=== PATIENT | female | born 1995 | race Caucasian/White ===

== ENCOUNTER → 2020-09-12 10:06 | Outpatient (CLI) | payer OTHER, MEDICAID, SELFPAY ==
--- NOTE | 2020-09-12 | DI.US.S_ITS ---
PROCEDURE: US OB >= 14 WEEKS FETUS INDICATIONS: ANATOMY OUTSIDE/PRIOR DATING DATA: Last menstrual period (LMP): 04/13/2020. LMP-based estimated date of delivery (IVA): 01/18/2021 . First dating scan (date and location): 09/12/2020 . Estimated date of delivery (IVA) from first dating scan: 01/12/2021 . TECHNIQUE: Real-time scanning was performed of the fetus, with image documentation and biometric measurements. Endovaginal scanning: No COMPARISON: None. FINDINGS: General: A single living intrauterine gestation is present. Presentation: Variable. Placenta: Placental position is anterior , with lower uterine contraction and the inferior aspect of the placenta may be low lying. Amniotic fluid index: 19.1 cm, normal range is 5-24 cm. heart rate: 153 beats per minute. Maternal cervical canal: 7.3 cm long. Normal lower limit is 2.5 cm. biometrics: Biparietal diameter: 22 weeks 5 days Head circumference: 22 weeks 6 days Abdominal circumference: 22 weeks 4 days Femur length: 22 weeks 0 days Estimated gestational age from initial scan: not applicable. Composite gestational age from present scan: 22 weeks 4 days Estimated weight and percentile: 502 g Measurement variability for biometric dating: +/- 7 days from 14 weeks to 15 weeks 6 days gestation, +/- 10 days from 16 weeks to 21 weeks 6 days gestation, +/- 2 weeks from 22 weeks to 27 weeks 6 days gestation, +/- 3 weeks for 28 weeks gestation or later. weight reference: 4500 g or EFW >90/95% is considered macrosomia or large for gestational age. EFW <10% is small for gestational age. EFW 5% or less is considered intra-uterine growth restriction. Anatomic survey: Neuro: Ventricles are non-dilated at less than 10 mm. Cisterna magna is normal at 3-11 mm. Cerebellum is normal in size and morphology. Nuchal skin fold: Normal at less than 6 mm between 14-21 weeks gestational age. Face: Suboptimally visualized. Spine: No evidence for spina bifida. Heart: 4-chambered heart is present, with normal ventricular outflow tracts. Diaphragm: Diaphragm is intact. Stomach: Left-sided stomach is present. Kidneys: No hydronephrosis. Normal is less than 5 mm in 2nd trimester, less than 7 mm in 3rd trimester. Cord: 3-vessel cord has orthotopic insertion. Bladder: Normal in size. Extremities: All 4 extremities identified. IMPRESSION: 1. 22 week 4 day single living IUP. 2. face suboptimally visualized; otherwise normal anatomy. 3. Lower uterine segment contraction and a low-lying placenta may be present and therefore a short-term follow-up ultrasound is recommended. Dictated by: Aniket Jackson [facility] Interpreted: Ervin Melgar MD on 09/12/2020 at 16:57 Transcribed by: LAQUITA on 09/12/2020 at 16:59 Approved by: Ervin Melgar M.D. on 09/23/2020 at 13:20
== END ==
PROVIDERS: Referring Provider Nurse Practitioner Obstetrics & Gynecology; Visit Provider Nurse Practitioner Obstetrics & Gynecology
DX: Z36.89 Encounter for other specified antenatal screening (principal); Z3A.22 22 weeks gestation of pregnancy
CPT/HCPCS: 76811

== ENCOUNTER → 2020-11-01 10:58 | Outpatient (CLI) | payer OTHER, MEDICAID, SELFPAY ==
[2020-11-01 12:02] LABS: Hematocrit 31.1 % (36-46); Hemoglobin 10.7 g/dL (12.0-16.0); Mean Corpuscular HGB Conc 34.4 % (30-36); Mean Corpuscular Hemoglobin 29.2 PG (26-34); Platelet Count 183 X10^3/uL (150-400); Red Blood Cell Count 3.66 X10^6/uL (4.0-5.2); Red Cell Distribution Width 13.1 % (11.6-14.8); White Blood Cell Count 8.2 X10^3/uL (4.5-11.0)
[2020-11-01 12:37] LABS: Glucose Fasting 76 mg/dL (70-100)
[2020-11-01 13:27] LABS: Glucose 1 Hour 148 mg/dL (70-170)
[2020-11-01 13:50] LABS: Glucose Tol Interpretation INTERPRETATION
[2020-11-01 14:43] LABS: Glucose 2 Hour 118 mg/dL (70-140)
== END ==
PROVIDERS: Referring Provider Nurse Practitioner Obstetrics & Gynecology; Visit Provider Nurse Practitioner Obstetrics & Gynecology
DX: Z34.90 Encounter for supervision of normal pregnancy, unspecified, unspecified trimester (principal); Z13.1 Encounter for screening for diabetes mellitus; Z67.91 Unspecified blood type, Rh negative; Z3A.27 27 weeks gestation of pregnancy
CPT/HCPCS: 36415; 82951; 82952; 85027

== ENCOUNTER → 2020-11-18 12:39 | Outpatient (CLI) | payer OTHER, MEDICAID, SELFPAY ==
--- NOTE | 2020-11-18 | DI.US.S_ITS ---
PROCEDURE: US OB FOLLOW UP INDICATIONS: FOLLOW UP PLACENTAL LOCATION AND PROFILE OUTSIDE/PRIOR DATING DATA: Last menstrual period (LMP): 04/13/2020. LMP-based estimated date of delivery (IVA): 01/18/2021. First dating scan (date and location): 09/12/2020. Estimated date of delivery (IVA) from first dating scan: 01/12/2021. TECHNIQUE: Real-time scanning was performed of the fetus, with image documentation. Endovaginal scanning: Not performed. COMPARISON: 09/12/2020. FINDINGS: A single living intrauterine gestation is present. Presentation: Vertex/oblique. Placenta: Placental position is anterior, without previa. Amniotic fluid index: 19.4 cm, normal range is 5-24 cm. heart rate: 147 beats per minute. Maternal cervical canal: 5.3 cm long. Normal lower limit is 2.5 cm. No funneling. Estimated gestational age from initial scan: 32 weeks 1 day. Profile is not visualized and appears normal. Debris or concentrated urine in the maternal urinary bladder. IMPRESSION: 1. [place]isner[place] living intrauterine at 32 weeks 1 day based on prior ultrasound. 2. Normal placenta and amniotic fluid. No placental previa. 3. Normal profile. 4. Debris or concentrated urine in the maternal urinary bladder. Dictated by: Sukhi Geronimo M.D. on 11/18/2020 at 13:30 Approved by: Sukhi Geronimo M.D. on 11/18/2020 at 13:32
== END ==
PROVIDERS: Referring Provider Nurse Practitioner Obstetrics & Gynecology; Visit Provider Nurse Practitioner Obstetrics & Gynecology
DX: Z36.2 Encounter for other antenatal screening follow-up (principal); Z3A.32 32 weeks gestation of pregnancy
CPT/HCPCS: 76816

== ENCOUNTER → 2020-12-30 11:49 | Outpatient (ROUT) | payer OTHER, MEDICAID, SELFPAY | PROVIDERS: Visit Provider Nurse Practitioner Obstetrics & Gynecology | DX: Z34.90 Encounter for supervision of normal pregnancy, unspecified, unspecified trimester (principal); Z36.85 Encounter for antenatal screening for Streptococcus B; Z3A.36 36 weeks gestation of pregnancy | CPT/HCPCS: 87081 ==

== ENCOUNTER 2021-01-24 02:35 | Observation (INO) | payer OTHER, MEDICAID, SELFPAY ==
--- NOTE | 2021-01-24 03:08 | PM.OBTRLD ---
Visit Information Visit Information Date of evaluation: 01/24/21 Primary OB Provider: Teresa Grimm On-call OB Provider: Zaina Mace Reason for Evaluation: Yes rule out labor Comments/Additional reasons for admission: 25YO @ [id number] here for evaluation of labor. Contractions have been progressing in frequency and intensity since yesterday. Lots of FM. Noticed mucus plug and small spotting in discharge. No LOF. Uncomplicated PN care w/ CNM. Vital Signs Vital Signs: BP 135/65, HR 94bpm, T 36.0C Temporal PFSH Social History Smoking Status: Never smoker Review of Systems Review of Systems ROS: Yes All systems reviewed with the patient and are negative except as otherwise documented Exam Vital Signs (past 8 hours): see above Evaluation Evaluation Baseline heart rate: 145 Variability: Moderate (11-25) monitor accelerations: Present Monitor Decelerations: Variable (single) Contraction Frequency (minutes): 2 Uterine Contraction Intensity: Moderate Category of Tracing: Reactive Cervical dilation (cm): 1.5 Cervical effacement (%): 75 station: -3 Diagnosis, Plan/Disposition Final Diagnosis (1) False labor after 37 completed weeks of gestation: Status: Acute Plan/Disposition Plan: Reassurance of normal given. Counseled on early labor and early labor recommendations. Encouraged her to try hydrotherapy and rest and call when contractions strengthen. OB Disposition: home
== END 2021-01-24 03:25 | disposition home or self-care (01) ==
LOC: LABOR 02:36
PROVIDERS: Admitting Provider Nurse Practitioner Obstetrics & Gynecology; Referring Provider Nurse Practitioner Obstetrics & Gynecology; Visit Provider Nurse Practitioner Obstetrics & Gynecology
DX: O47.1 False labor at or after 37 completed weeks of gestation (principal); O48.0 Post-term pregnancy; Z3A.40 40 weeks gestation of pregnancy
CPT/HCPCS: 59025; G0378; G0379

== ENCOUNTER 2021-01-25 02:25 | Inpatient (IN) | payer OTHER, MEDICAID, SELFPAY ==
--- NOTE | 2021-01-25 03:19 | PM.OBHP.1 ---
OB HPI Date/Time Date of admission: 01/25/21 Date Patient Seen: 01/25/21 Time Patient Seen: 03:00 History of Present Condition Chief complaint: obs : 1 Para: 0 Estimated Date of Delivery: 01/18/21 Estimated Gestational Age (weeks): 41 Narrative: Ilene Amos is a 25 year old female @ 41wks by LMP and 10wk US who presents for evaluation of labor. Has been daryl regularly for 2 days. Contractions became strong a few hours ago. +FM. No VB or LOF. Uncomplicated PN care w/ CNM. Desires low intervention . Partner, Mario is present and supportive. History of Present care: good care, initiated at week # (10), number of visits (11) and pounds weight gain (41) Dating criteria: LMP confirmed by 1st trimester US Ultrasounds: normal mid trimester US Obstetrical complications: none Medical complications: none Preadmission Labs Blood type: A (-) negative -: Antibody screen: negative, HBsAG: negative, HIV: negative and RPR/VDLR: negative -: Chlamydia screen: not detected and Gonorrhea screen: not detected -: Rubella: immune HCT: 31.1 HCAB: negative PAP: Abnormal (ASCUS, HPV POSITIVE-> colposcopy negative) Narrative: 2hr gtt: 76/148/118 Evaluation Evaluation Baseline heart rate: 145 Variability: Moderate (11-25) monitor accelerations: Present Monitor Decelerations: Early (occasional) Contraction Frequency (minutes): 2 Uterine Contraction Intensity: Moderate Status: Category l Cervical dilation (cm): 4 Cervical effacement (%): 75 station: -2 [facility] Medical History (Updated 01/25/21 @ 03:33 by Teresa Grimm CNM) History of pyelonephritis Social History Smoking Status: Never smoker Meds Home Medications and Allergies Home Medications Medication Instructions Recorded Confirmed Type 1 01/25/21 History ferrous sulfate 325 mg (65 mg 325 mg PO DAILY 01/25/21 01/25/21 History iron) tablet Allergies Allergy/AdvReac Type Severity Reaction Status Date / Time No Known Drug Allergies Allergy Unverified 08/07/20 10:51 Review of Systems Review of Systems ROS: Yes All systems reviewed with the patient and are negative except as otherwise documented Exam Vital Signs (past 8 hours): BP 128/85mmHg, HR 105bpm, T 36.5C Temporal Resp Auscultation: clear to auscultation bilaterally Cardio Rate: regular rate Rhythm: regular rhythm Heart Sounds: S1 normal and S2 normal Presentation: vertex Assessment and Plan Assessment and Plan Assessment and Plan narrative: A: Term [place] Approaching active labor No indication for GBS prophylaxis Cat I FHR P: Admit, routine orders. May switch to intermittent auscultation. Labor support, PRN. Reassess in 4 hours or sooner, PRN
[2021-01-25 03:27] LABS: Add Manual Diff / Slide Review NO; Basophils Absolute Auto 0 /uL (0-100); Basophils Percent Auto 0.1 % (0-2); Eosinophils Absolute Auto 0 /uL (0-450); Eosinophils Percent Auto 0.1 % (2-4); Hemoglobin 10.5 g/dL (12.0-16.0); Lymphocytes Absolute Auto 1900 /uL (1100-4500); Lymphocytes Percent Auto 10.5 % (25-40); Mean Corpuscular HGB Conc 32.9 % (30-36); Mean Corpuscular Hemoglobin 26.6 PG (26-34); Mean Corpuscular Volume 80.9 fL (80-100); Monocytes Absolute Auto 1300 /uL (0-900); Monocytes Percent Auto 7.2 % (3-14); Neutrophils Absolute Auto 14500 /uL (1500-7000); Neutrophils Percent Auto 82.1 % (50-75); Platelet Count 207 X10^3/uL (150-400); Red Blood Cell Count 3.96 X10^6/uL (4.0-5.2); Red Cell Distribution Width 13.6 % (11.6-14.8); White Blood Cell Count 17.7 X10^3/uL (4.5-11.0)
[2021-01-25 04:01] VITALS: BP 128/85
[2021-01-25 04:34] LABS: COVID19 - ADMIT (NP swab/PCR) Negative (Negative)
[2021-01-25] MEDS: LACTATED RINGERS 1,000 ML 100 ML IV ×2 (06:57→14:55)
--- NOTE | 2021-01-25 11:53 | P.PNOB_ITS ---
Date/Time Date Patient Seen: 01/25/21 Time Patient Seen: 11:53 Pain Control Pain control: tolerating well (using TENs and breathing throucontractions) Comments: Feeling slight urge to push, not strong yet. Hand Mica Plate Layer and partner remain present and supportive VS: BP 135/86mmHg, HR 108bpm, RR 18/min, T 36.6C Temporal Pelvic Exam Dilation (cm): 7 Effacement (%): 100 station: -2 Amniotic membrane status: Intact Contractions Monitor mode: External Pitocin rate (mU/min): 0 Contraction frequency (min): 3 Contraction duration (min): 1 Contraction pattern: Regular Contraction intensity: Strong/Firm Status status: Category ll Heart Rate Baseline: 150 Monitor Accelerations: Present Monitor Decelerations: Early, Recurrent and Variable Monitor Variability: Minimal (with periods of moderate) Assessment and Plan Assessment: active labor Plan: continuous present management Comments: Anticipated NSVB. Reassess in 2-4 hours or sooner, PRN.
[2021-01-25] MEDS: OXYTOCIN 10 UNIT/ML VIAL IM (17:43)
[2021-01-25] MEDS: miSOPROStoL 200 MCG TABLET 400 MCG SL (17:45)
[2021-01-25] MEDS: METHYLERGONOVINE 0.2 MG/ML VIAL IM (17:51)
[2021-01-25] MEDS: TRANEXAMIC ACID 1,000 MG in SODIUM CHLORIDE 0.9% 100 ML 200 ML IV (17:57)
--- NOTE | 2021-01-25 18:42 | P.PCNOB_ITS ---
Events: Meconium Stained Fluid Labor & Delivery Delivery date: 01/25/21 Intrapartal Events: None Cervical ripening method: none Induction method: none Delivery monitor: external FHT and external uterine Route of delivery: Episiotomy description: None L&D Laceration Description: Perineal - 2nd Degree Delivery repair: chromic (3.0) Estimated blood loss (mL): 900 Anesthesia Type: None Narrative: Ilene labored well without medication or augmentation. Cat II FHR throughout labor for recurrent early and mild variable decelerations. Was presumed complete with spontaneous urge to push. Coaching, encouragement, and strong maternal efforts with multiple position changes led to NSVB of a vigorous baby boy in ERIC position while upright on the CUB. Shoulders delivered easily. [place] was sommersaulted through a double loose nuchal cord and placed on maternal abdomen. Copious thick meconium and heavy bleeding was noted with delivery of the abdomen. IV was not functional to start IV pitocin for AMTSL so pitocin 10 units was given IM. Misoprostil 400mL SL was given. Cord was double clamped and cut and Ilene was assisted to bed for IV start and management of the placenta. Hospital cord blood sample was collected. placed skin to skin with FOB. Bleeding remained heavy during IV placement. Methergine 0.2mg IM given and Tranexamic acid IV ordered, given immediately after IV start. Gentle cord traction and single maternal push led to spontanous, Schultze delivery of an apparently intact placenta, membranes and 3VC. Trailing membranes teased out with ring forceps. Fundus immediately firm and bleeding light. Edematous 2nd degree perineal laceration repaired with 3.0 vicryl in the usual fashion under adequate 1% lidocaine local. Stubbs placed d/t significant periurethral edema. QBL 900mL. Mother and baby stable and skin to skin as I left the room. [place] Baby 1: Infant gender: Male Presentation: vertex Position: Left Occiput Anterior Placenta delivery description: Spontaneous Cord Vessel Description: 3 Vessels, Nuchal Cord (x2) and Loose score (1 min): 8 score (5 min): 9 weight: 4.002 kg Plan for aftercare: Routine care (D/C Stubbs catheter after 12 hours. CBC in am.)
[2021-01-25] MEDS: KETOROLAC 30 MG/ML VIAL IV (18:53)
[2021-01-25] MEDS: ACETAMINOPHEN 325 MG TABLET 650 MG PO (21:30)
[2021-01-26] MEDS: IBUPROFEN 600 MG TABLET PO ×3 (00:35→18:21)
[2021-01-26] MEDS: DERMOPLAST SPRAY 20% 60 ML 1 SPRAY TOP (02:18)
[2021-01-26 06:34] LABS: Hematocrit 27.2 % (36-46); Hemoglobin 8.8 g/dL (12.0-16.0); Mean Corpuscular HGB Conc 32.3 % (30-36); Mean Corpuscular Hemoglobin 26.5 PG (26-34); Mean Corpuscular Volume 82.1 fL (80-100); Platelet Count 185 X10^3/uL (150-400); Red Blood Cell Count 3.31 X10^6/uL (4.0-5.2); Red Cell Distribution Width 13.8 % (11.6-14.8); White Blood Cell Count 25.9 X10^3/uL (4.5-11.0)
[2021-01-26 06:35] LABS: Add Manual Diff / Slide Review YES
[2021-01-26 07:35] LABS: Neutrophils Absolute Manual 21497 /uL (3000-5900); Platelet Estimate Adequate on smear; RBC Morphology Normal Morphology; Total Cells Counted 100
[2021-01-26] MEDS: ACETAMINOPHEN 325 MG TABLET 650 MG PO ×2 (08:08→18:21)
--- NOTE | 2021-01-26 11:28 | PM.OBDS.1 ---
Discharge Providers Provider Date of admission: 01/25/21 02:25 Discharge Date: 01/26/21 Consults: 01/26/21 18:46 Consult to [employer] Routine Comment: Discharge provider: Teresa Grimm CNM Summary Hospital Course Date Patient Seen: 01/26/21 Time Patient Seen: 11:29 Diagnoses: o70.1 Hospital Course: Ilene is voiding, ambulating and independently. Denies feeling weak or dizzy with ambulation. Tolerating a general diet. Lochia is light, no clots. Swelling has decreased and Stubbs has been removed, but she hasn't felt the urge to void yet. Pain is well controlled with PO medication. Partner remains present and supportive and they would like to go home later today. Peripartum Data Delivery Method: Natural Vaginal Laceration Description: Perineal - 2nd Degree Episiotomy description: None Procedures: IV Fe given complications: other (Heavy bleeding, not meeting criteria for PPH) 1: Gender: Male Disposition of : home Discharge Diagnosis (1) Second degree perineal laceration during delivery: Start Date: 01/25/21 Start Time: 17:36 Status: Acute Status at Discharge Cognitive/behavioral status at discharge: oriented and calm Functional status at discharge: independent ambulation Overall status at discharge: patient is progressing back to baseline Time Spent with Patient Time attestation: Total time spent providing and/or coordinating discharge services: Time spent: Less than 30 minutes Objective Labs Result Diagrams: 01/26/21 06:08 Labs: Laboratory Results - last 24 hr 01/26/21 01/26/21 06:08 06:08 WBC 25.9 H RBC 3.31 L Hgb 8.8 L Hct 27.2 L MCV 82.1 MCH 26.5 MCHC 32.3 RDW 13.8 Plt Count 185 Neut % (Auto) Not Reportable Lymph % (Auto) Not Reportable [place] % (Auto) Not Reportable Eos % (Auto) Not Reportable Baso % (Auto) Not Reportable Lymph # (Auto) Not Reportable [place] # (Auto) Not Reportable Baso # (Auto) Not Reportable Total Counted 100 Seg Neutrophils % 83.0 H Lymphocytes % (Manual) 9.0 L Monocytes % (Manual) 8.0 Neutrophils # (Manual) 47029 H Platelet Estimate Adequate on smear RBC Morphology Normal morphology Maternal Bleed Negative Exam Vital Signs (past 8 hours): BP 117/79mmHg, HR 98bpm, RR 12/min, T 97.8Oral, SpO2 98% on RA Other: Fundus firm @ U-1, lochia small without clots. Perinuem well approximated with mild edema. Discharge Plan Discharge Plan Patient Disposition: Home Provider Discharge Comment: After void x 2 Discharge orders & Medications Prescriptions: New docusate sodium 100 mg Capsule 100 mg PO DAILY 14 Days Qty: 14 RF: 0 ibuprofen 600 mg Tablet 600 mg PO Q6HR PRN (Reason: Pain, Mild (1-3)) 14 Days Qty: 60 RF: 1 Continued 1 1 tab 1 tab PO RF: 0 Discontinued ferrous sulfate 325 mg (65 mg iron) Tablet 325 mg PO DAILY RF: 0 Follow up/Referrals: Teresa Grimm CNM [[facility]] - (Follow-up by Telehealth 02/08/21 @ 11:30am Follow-up in office 03/11/21 @ @ 1:45pm) Diet/Activity/Treatments Diet: Diet as Tolerated and Regular Activity: pelvic rest x 6 weeks Skin/Wound/Dressing Care Report to your healthcare provider any signs of infection, such as:: chills, fever, increased pain, unusual drainage and unusual redness Visit Report/Discharge Packet Instructions: Depression
[2021-01-26] MEDS: IRON SUCROSE 300 MG in SODIUM CHLORIDE 0.9% 100 ML 115 ML IV (11:55)
[2021-01-26] MEDS: DOCUSATE 100 MG CAPSULE PO (12:32)
[2021-01-26] MEDS: FERROUS SULFATE 325 MG TABLET PO (13:00)
[2021-01-26 20:40] VITALS: BP 107/64; PULSE 74; RESP 16; TEMP 36.3
== END 2021-01-26 21:37 | disposition home or self-care (01) | DRG 560 ==
PROVIDERS: Admitting Provider Nurse Practitioner Obstetrics & Gynecology; Referring Provider Nurse Practitioner Obstetrics & Gynecology; Visit Provider Nurse Practitioner Obstetrics & Gynecology
DX: O48.0 Post-term pregnancy (principal); O70.1 Second degree perineal laceration during delivery; Z3A.41 41 weeks gestation of pregnancy; Z37.0 Single live birth; O98.52 Other viral diseases complicating childbirth; R87.820 Cervical low risk human papillomavirus (HPV) DNA test positive; O77.0 Labor and delivery complicated by meconium in amniotic fluid; O76 Abnormality in fetal heart rate and rhythm complicating labor and delivery; O69.81X0 Labor and delivery complicated by cord around neck, without compression, not applicable or unspecified; Z20.822 Contact with and (suspected) exposure to COVID-19; O47.1 False labor at or after 37 completed weeks of gestation
CPT/HCPCS: 36415; 59025; 59050; 85007; 85025; 85461; 86850; 86900; 86901; 87635; C9803; G0378; G0379; J1756; J1885; J2210; J2590; S0191